=== PATIENT | male | born 1965 | race Caucasian/White ===

== ENCOUNTER 2016-10-26 19:00 | Emergency (ER) | payer OTHER ==
--- NOTE | 2016-10-26 19:15 | PDOC ---
History of Present Illness - General History Source: Patient Exam Limitations: No Limitations - History of Present Illness Initial Comments: 10/26/16 19:32 The patient is a 50 year old male, with a significant past medical history of right knee medial and lateral meniscal tear (2013), hypertension, diabetes, GERD , and BPH, who presents to the emergency department complaining of right knee pain for approximately 3 days. The patient reports he was taking a nap on his couch, but when he went to get up he felt something snap in his knee. Patient reports he almost fell after the incident. He reports associated pain at the right knee. Patient describes the pain as if the bones were rubbing against each other. Patient reports his pain is exacerbated with standing or walking. He denies any edema, erythema, or ecchymosis at the right knee. Patient reports the only possible injury to the knee, was about a month ago when he missed a step on a ladder and began to feel pain shortly after but he did not think much of it. He denies any other trauma. Patient reports he took 1 800 mg ibuprofen yesterday for the pain with mild relief. He denies any fever or chills. He denies any recent travel or sick contacts. Allergies: NKDA Past Surgical History: Right Knee Arthroscopy with partial meniscectomy(medial and lateral menisus) Social History: Non smoker. No ETOH or drug use. Orthopedist: Dr. Peralta <Jose Eduardo Cain - Last Filed: 10/26/16 19:32> <Viviana Salter - Last Filed: 10/27/16 05:01> - General Chief Complaint: Pain Stated Complaint: RIGHT KNEE PAIN Time Seen by Provider: 10/26/16 19:13 Past History <Jose Eduardo Cain - Last Filed: 10/26/16 19:32> - Past Medical History Anemia: No Asthma: No Cancer: No Cardiac Disorders: No CVA: No COPD: No CHF: No Dementia: No Diabetes: Yes GI Disorders: Yes (GERD) Disorders: Yes (BPH) HTN: Yes Hypercholesterolemia: No Liver Disease: No Seizures: No Thyroid Disease: No - Psycho/Social/Smoking Cessation Hx Anxiety: No Suicidal Ideation: No Smoking History: Former smoker Have you smoked in the past 12 months: No If you are a former smoker, when did you quit?: 1999 Hx Alcohol Use: No Drug/Substance Use Hx: No Substance Use Type: None Hx Substance Use Treatment: No <Viviana Salter - Last Filed: 10/27/16 05:01> - Past Medical History Allergies/Adverse Reactions: Allergies Allergy/AdvReac Type Severity Reaction Status Date / Time No Known Drug Allergies Allergy Verified 01/24/15 11:54 Home Medications: Ambulatory Orders Aspirin [Aspirin EC] 81 mg PO HS 10/30/13 Metformin HCl [Glucophage] 500 mg PO HS 10/30/13 Metoprolol Succinate [Toprol XL -] 25 mg PO HS 10/30/13 Omeprazole [Prilosec] 40 mg PO DAILY 10/30/13 Terazosin HCl 2 mg PO HS 10/30/13 Review of Systems - Review of Systems Able to Perform ROS?: Yes Comments:: 10/26/16 19:32 CONSTITUTIONAL: Absent: fever, no chills, no fatigue EYES: Absent: visual changes ENT: Absent: ear pain, no sore throat CARDIOVASCULAR: Absent: chest pain, no palpitations RESPIRATORY: Absent: cough, no SOB GI: Absent: abdominal pain, no nausea, no vomiting, no constipation, no diarrhea GENITOURINARY: Absent: dysuria, no frequency, no hematuria MUSKULOSKELETAL: Present: +right knee pain Absent: back pain, no arthralgia, no myalgia SKIN: Absent: rash NEURO: Absent: headache <Cain,Giomilsy - Last Filed: 10/26/16 19:32> *Physical Exam - Vital Signs Last Vital Signs Temp Pulse Resp BP Pulse Ox 98.6 F 65 16 126/86 94 L 10/26/16 19:05 10/26/16 19:05 10/26/16 19:05 10/26/16 19:05 10/26/16 19:05 - Physical Exam Comments: 10/26/16 19:33 GENERAL: The patient is awake, alert, and fully oriented, in no acute distress. HEAD: Normal with no signs of trauma. EYES: Pupils equal, round and reactive to light, extraocular movements intact, sclera anicteric, conjunctiva clear with no pallor. ENT: Ears normal, nares patent, oropharynx clear without exudates. Moist mucous membranes. NECK: Normal range of motion, supple without lymphadenopathy, JVD, or masses. LUNGS: Breath sounds equal, clear to auscultation bilaterally. No wheeze/ crackles. HEART: Regular rate and rhythm, normal S1 and S2 without murmur or rub. ABDOMEN: Soft/nontender/nondistended. BS wnl. No guarding or rebound. No palpable masses. No hepatosplenomegaly. EXTREMITIES: Minimal edema of the anterior aspect of the right knee, but no erythema or increased warmth to touch. Mild tenderness to the anterior joint line of the right knee. Mild tenderness posteriorly without edema and without palpable masses. No ligamentous instability. Otherwise normal range of motion, no edema. No clubbing or cyanosis. No cords, erythema, or any other tenderness. NEUROLOGICAL: Cranial nerves II through XII grossly intact. Normal speech, normal gait. PSYCH: Normal mood, normal affect. SKIN: Warm, Dry, normal turgor, no rashes or lesions noted. <Jose Eduardo Cain - Last Filed: 10/26/16 19:32> Progress Note - Progress Note Progress Note: Documentation has been prepared under my direction and personally reviewed by me in its entirety. I attest that this documented accurately reflects all work, treatment, procedures and medical decision making performed by me. <Viviana Salter - Last Filed: 10/27/16 05:01> Medical Decision Making - Medical Decision Making As noted above, this 50-year-old man presents with right knee pain and "clicking " noise within the joint with movement. Patient has had meniscal surgery( arthroscopic) performed in the past on this knee. Exam as noted. Right knee x-ray shows no evidence of acute fracture/dislocation or significant effusion. Toradol 60 mg IM given. Patient will be discharged with knee immobilizer in place to be used during the day until evaluation by his orthopedist, Dr. Peralta. Patient should take Celebrex 200 mg daily as needed for pain (he has a history of gastritis) <Viviana Salter - Last Filed: 10/27/16 05:01> *DC/Admit/Observation/Transfer - Attestations Scribe Attestion: 10/26/16 19:33 Documentation prepared by Jose Eduardo Cain, acting as medical records administrator for Viviana Salter MD. <Jose Eduardo Cain - Last Filed: 10/26/16 19:32> <Viviana Salter - Last Filed: 10/27/16 05:01> Diagnosis at time of Disposition: Right knee pain Qualifiers: Chronicity: acute Qualified Code(s): M25.561 - Pain in right knee - Discharge Dispostion Disposition: HOME Condition at time of disposition: Stable - Referrals Referrals: Aric Pérez [Primary Care Provider] - Garth Peralta MD [Staff Physician] - Call tomorrow - Patient Instructions Printed Discharge Instructions: DI for Knee Pain Additional Instructions: Elevate and ice to the front of the knee as much as possible for the next 24 hours Knee immobilizer when up and around until seen by Dr. Peralta Call Dr. Peralta's office tomorrow for an appointment within the next 5 days Celebrex as needed for pain as discussed Return to ER if you have severe, persistent pain
[2016-10-26 19:18] VITALS: BP 126/86; PULSE 65; TEMP 98.6; BMI 36.0
[2016-10-26] MEDS ORDERED: KETOROLAC TROMETHAMINE 60 MG/2 ML VIAL IM ONE (20:23)
[2016-10-26] MEDS ORDERED: KETOROLAC TROMETHAMINE 60 MG/2 ML VIAL ONE (20:29)
== END 2016-10-26 20:38 | disposition home or self-care (01) ==
LOC: FER 19:00 → SUPCPDRO 19:00 → FER 20:38
PROC: 2W3LX1Z Immobilization of Right Lower Extremity using Splint (ICD-10-PCS; principal; 2016-10-26)
DX: M25.561 Pain in right knee (principal)
CPT/HCPCS: 73562-TC-RT; 99282-25

== ENCOUNTER 2018-03-23 09:47 | Day surgery (SDC) | payer OTHER ==
[2018-03-20 12:52] VITALS: BMI 41.7
[2018-03-23] MEDS ORDERED: BUPIVACAINE HCL/PF 2.5 MG/ML - 30 ML VIAL IJ ONE (12:05)
[2018-03-23] MEDS ORDERED: PROPOFOL 20 ML ONE ×3 (12:06)
[2018-03-23] MEDS ORDERED: MIDAZOLAM HCL 2 MG/2 ML SINGLE DOSE VIAL ONE ×2 (12:06→14:20)
[2018-03-23] MEDS ORDERED: ONDANSETRON 4 MG/2 ML VIAL ONE (12:43)
[2018-03-23] MEDS ORDERED: ceFAZolin SODIUM 1 GM VIAL ONE (12:43)
[2018-03-23] MEDS ORDERED: DEXAMETHASONE SOD PHOSPHATE 4 MG/1 ML VIAL ONE (12:43)
[2018-03-23] MEDS ORDERED: KETOROLAC TROMETHAMINE 30 MG/1 ML VIAL ONE (12:47)
[2018-03-23] MEDS ORDERED: BUPIVACAINE HCL/PF 0.25% (2.5MG/ML) 10 ML VIAL IJ ONE (13:03)
[2018-03-23] MEDS ORDERED: oxyCODONE HCL 5 MG TABLET PO PRN ×2 (15:03)
[2018-03-23] MEDS ORDERED: ACETAMINOPHEN 325 MG TABLET (FP) PO PRN (15:03)
[2018-03-23] MEDS ORDERED: ONDANSETRON 4 MG/2 ML VIAL IVPUSH PRN (15:03)
[2018-03-23] MEDS ORDERED: LACTATED RINGERS SOLUTION 1,000 ML IV SCH (15:15)
[2018-03-23 15:44] VITALS: PULSE 62
[2018-03-23 15:47] VITALS: BP 144/90; TEMP 97
--- NOTE | 2018-03-25 14:39 | OP ---
DATE OF OPERATION: 03/23/2018 SURGEON: Garth Chen MD EARLY LEARNING TEACHER: ALEX Green PREOPERATIVE DIAGNOSES: 1. Right knee medial and lateral meniscal tear. 2. Right knee cartilage injury. 3. Right knee synovitis. POSTOPERATIVE DIAGNOSES: 1. Right knee medial and lateral meniscal tear. 2. Right knee cartilage injury. 3. Right knee synovitis. PROCEDURE: 1. Right knee arthroscopy with partial meniscectomy, medial and lateral meniscus; CPT code 93075. 2. Right knee arthroscopy with chondroplasty and abrasionplasty; CPT code 05775. 3. Right knee arthroscopy with synovectomy; CPT code 87904. FINDINGS: 1. Medial meniscus body and posterior horn tear. 2. Lateral meniscus central body to posterior horn tear. 3. Synovitis of the patellofemoral, notch area. 4. Essentially grade 4 cartilage injury, medial femoral condyle, 4 cm x 2 cm. 5. ACL and PCL intact. 6. grade 1 to 2 cartilage injury, lateral joint line. 7. Essentially grade 2 to 3 cartilage injury, patella, with grade 2 to 3 changes and anterior grade 4 changes of the patellofemoral trochlea. PROCEDURE: Informed consent was obtained. The patient came to the operating room, where the lower extremity was prepped and draped in a sterile fashion. A tourniquet was placed on the upper thigh, but not inflated. Using standard arthroscopic technique, a lateral incision and portal was made to allow for introduction of the camera into the suprapatellar bursa. This was then taken to the medial joint line, where under direct visualization, a medial incision and portal was made. Excessive synovium noted in the medial, lateral and patellofemoral and notch area was removed by an upbiter, shaver and Bovie cautery. This was found to bring in inflammatory tissue into the joint surface, a source of pain and dysfunction. Probing of the medial and lateral meniscus found tears, as described in the findings. These were removed with the upbiter and shaver and taken back to a stable rim. Grade 2 to 3 degenerative changes were treated with a chondroplasty, removing all flaking surfaces with low-setting Bovie along the periphery to prevent further flaking. Grade 4 changes, as noted, were treated with an abrasionplasty, creating a bleeding surface at the bone/cartilage interface. Aggressive debridement with shaver/jimi created bleeding surface. Micro fracture also done when indicated in findings. All areas of the knee were once again reexamined. The knee was then drained and a single suture was placed in all portals. A sterile dressing was placed and the patient was transferred to the recovery room without complication. The PA listed above was present and assisted at surgery. Their presence was absolutely medically necessary for the completion of the procedure. They helped hold the arthroscopy, pass instruments (and implants when indicated) and the procedure could not have been completed without their assistance. GARTH CHEN M.D. [id number]
== END 2018-03-23 15:48 | disposition home or self-care (01) ==
LOC: FASU 09:47
PROVIDERS: ATTEND Orthopaedic Surgery
PROC: 0SBC4ZZ Excision of Right Knee Joint, Percutaneous Endoscopic Approach (ICD-10-PCS; 2018-03-23)
PROC: 0SBC4ZZ Excision of Right Knee Joint, Percutaneous Endoscopic Approach (ICD-10-PCS; 2018-03-23)
PROC: 0SBC4ZZ Excision of Right Knee Joint, Percutaneous Endoscopic Approach (ICD-10-PCS; 2018-03-23)
PROC: 0SBC4ZZ Excision of Right Knee Joint, Percutaneous Endoscopic Approach (ICD-10-PCS; principal; 2018-03-23 11:30)
DX: S83.241A Other tear of medial meniscus, current injury, right knee, initial encounter (principal); X58.XXXA Exposure to other specified factors, initial encounter; Y93.9 Activity, unspecified; Y92.9 Unspecified place or not applicable; Y99.9 Unspecified external cause status; M65.9 Synovitis and tenosynovitis, unspecified
CPT/HCPCS: 82962; 94760

== ENCOUNTER 2018-09-17 00:05 | Inpatient (IN) | payer OTHER | END 2018-09-19 12:47 | disposition home or self-care (01) | LOC: J5S 00:05 ==

== ENCOUNTER 2018-09-20 08:04 | Emergency (ER) | payer OTHER | END 2018-09-20 12:18 | disposition home or self-care (01) | LOC: JER 08:04 ==

== ENCOUNTER 2024-12-06 06:09 | Day surgery (SDC) | payer OTHER ==
[2024-12-06] MEDS ORDERED: LIDOCAINE HCL/PF 1% SDV 5ML VIAL ONE (07:23)
[2024-12-06] MEDS ORDERED: DEXAMETHASONE SOD PHOSPHATE 10 MG/1 ML VIAL ONE (07:23)
[2024-12-06] MEDS: LIDOCAINE HCL 1% PRESERVATIVE FREE - 30ML VIAL IJ ONE ×2 (08:06)
[2024-12-06] MEDS: IOHEXOL 180 MG/1 ML ML IJ ONE ×2 (08:08)
[2024-12-06] MEDS: DEXAMETHASONE SOD PHOSPHATE 10 MG/1 ML VIAL IVPUSH ONE ×3 (08:22→08:24)
[2024-12-06] MEDS ORDERED: ACETAMINOPHEN 500 MG TABLET (FP) PO PRN (08:33)
[2024-12-06 08:52] VITALS: BP 141/86; PULSE 55; RESP 20; TEMP 97.5
== END 2024-12-06 08:54 | disposition home or self-care (01) ==
LOC: JASU-SURG 06:09
PROVIDERS: ATTEND Pain Medicine Pain Medicine
PROC: 3E0R3BZ Introduction of Anesthetic Agent into Spinal Canal, Percutaneous Approach (ICD-10-PCS; 2024-12-06)
PROC: 3E0R33Z Introduction of Anti-inflammatory into Spinal Canal, Percutaneous Approach (ICD-10-PCS; principal; 2024-12-06 09:45)
DX: M54.16 Radiculopathy, lumbar region (principal)
CPT/HCPCS: 76000-TC-FY; J1100

== ENCOUNTER 2025-01-17 05:25 | Day surgery (SDC) | payer OTHER ==
[2025-01-17] MEDS ORDERED: LIDOCAINE HCL 1%, 10 MG/ML (20ML VIAL) ONE (07:14)
[2025-01-17] MEDS ORDERED: BUPIVACAINE HCL/PF 0.75% 10 ML VIAL ONE (07:14)
[2025-01-17] MEDS ORDERED: LIDOCAINE HCL/PF 1% SDV 5ML VIAL ONE (07:15)
[2025-01-17 08:14] VITALS: BP 160/81; PULSE 56; RESP 14; TEMP 98.4
[2025-01-17] MEDS ORDERED: ACETAMINOPHEN 500 MG TABLET (FP) PO PRN (08:42)
== END 2025-01-17 08:20 | disposition home or self-care (01) ==
LOC: JASU-SURG 05:25
PROVIDERS: ATTEND Pain Medicine Pain Medicine
PROC: 3E0T33Z Introduction of Anti-inflammatory into Peripheral Nerves and Plexi, Percutaneous Approach (ICD-10-PCS; 2025-01-17)
PROC: 3E0T3BZ Introduction of Anesthetic Agent into Peripheral Nerves and Plexi, Percutaneous Approach (ICD-10-PCS; principal; 2025-01-17 07:54)
DX: M47.816 Spondylosis without myelopathy or radiculopathy, lumbar region (principal)
CPT/HCPCS: 76000-TC-FY